=== PATIENT | female | born 1975 | race Caucasian/White ===

== ENCOUNTER 2017-11-09 12:40 | Inpatient (IN) | payer OTHER ==
[2017-11-09 13:43] LABS: BASO % 0.4 % (0.0-1.0); EOS # 0.2 10^3/uL (0.0-0.50); EOS % 1.7 % (0.0-3.0); HEMATOCRIT 39.9 % (36.0-47.0); HEMOGLOBIN 12.5 g/dl (12.0-15.5); IMMATURE GRANULOCYTE % 0.3 % (0-3.0); LYMPH # 2.1 10^3/uL (1.5-4.5); MEAN CORPUSCULAR HGB CONC 31.3 g/dl (32.0-36.5); MEAN CORPUSCULAR VOLUME 83.1 fl (80.0-96.0); MONO # 0.4 10^3/uL (0.0-0.8); MONO % 4.1 % (0.0-5.0); NEUTROPHILS # 6.5 10^3/uL (1.8-7.7); NEUTROPHILS % 70.5 % (36.0-66.0); PLATELET COUNT, AUTOMATED 623 10^3/uL (150-450); RED CELL DISTRIBUTION WIDTH 16.8 % (11.5-14.5); WHITE BLOOD COUNT 9.2 10^3/uL (4.0-10.0)
[2017-11-09] MEDS: ONDANSETRON 4MG/2ML VIAL (J2405) IV ×2 (13:48→22:08)
[2017-11-09] MEDS: MORPHINE 4 MG/ML 1ML VIAL/SYRINGE (J2270) IV ×3 (13:48→23:59)
[2017-11-09] MEDS: NS 1,000 ML IV (13:49)
[2017-11-09 14:33] LABS: ALBUMIN 3.6 GM/DL (3.2-5.2); ALBUMIN/GLOBULIN RATIO 0.88 (1.00-1.93); ALKALINE PHOSPHATASE 128 U/L (45-117); ALT/SGPT 55 U/L (12-78); AMYLASE 84 U/L (25-115); ANION GAP 12 MEQ/L (8-16); AST/SGOT 51 U/L (7-37); BILIRUBIN,DIRECT < 0.1 MG/DL (0.0-0.2); BILIRUBIN,TOTAL 0.2 MG/DL (0.2-1.0); BLOOD UREA NITROGEN 8 MG/DL (7-18); CALCIUM LEVEL 8.7 MG/DL (8.5-10.1); CARBON DIOXIDE LEVEL 22 MEQ/L (21-32); CHLORIDE LEVEL 108 MEQ/L (98-107); CREATININE FOR GFR 0.83 MG/DL (0.55-1.30); GLOMERULAR FILTRATION RATE > 60.0 (>58); GLUCOSE, FASTING 113 MG/DL (70-100); LIPASE 114 U/L (73-393); POTASSIUM SERUM 4.1 MEQ/L (3.5-5.1); SODIUM LEVEL 142 MEQ/L (136-145); TOTAL PROTEIN 7.7 GM/DL (6.4-8.2)
[2017-11-09] MEDS ORDERED: ISOVUE-370 76% 100ML VIAL (Q9967) As Ordered (14:35)
[2017-11-09] MEDS: HYDROMORPHONE HCL 0.5 MG/ 0.5 ML SYRINGE (J1170 PER 1) IV ×2 (15:18→16:47)
[2017-11-09 15:36] LABS: LACTIC ACID SEPSIS PROTOCOL 2.2 MMOL/L (0.4-2.0)
[2017-11-09] MEDS ORDERED: D5W 500 ML IV (18:30)
[2017-11-09] MEDS ORDERED: METOCLOPRAMIDE 10 MG TAB PO (18:30)
[2017-11-09] MEDS: metroNIDAZOLE 500 MG in APPROPRIATE DILUENT 1 EA IV (19:45)
[2017-11-09] MEDS: D5W/0.45% SODIUM CHLORIDE 1,000 ML IV (19:46)
[2017-11-09] MEDS: clonazePAM 1 MG TAB PO (22:07)
[2017-11-09] MEDS: ACETAMINOPHEN TAB 650MG DOSE (2X325MG) PO (22:08)
[2017-11-09] MEDS: cefTRIAXone SOD 1 GM in D5W MINI-BAG PLUS 50 ML IV (22:09)
[2017-11-09] MEDS: OLANZapine 10 MG TAB PO (22:55)
[2017-11-10] MEDS: metroNIDAZOLE 500 MG in APPROPRIATE DILUENT 1 EA IV ×3 (04:14→20:19)
[2017-11-10] MEDS: MORPHINE 4 MG/ML 1ML VIAL/SYRINGE (J2270) IV ×5 (05:56→20:17)
[2017-11-10 07:04] LABS: HEMATOCRIT 30.7 % (36.0-47.0); MEAN CORPUSCULAR HEMOGLOBIN 26.2 pg (27.0-33.0); MEAN CORPUSCULAR HGB CONC 31.9 g/dl (32.0-36.5); MEAN CORPUSCULAR VOLUME 82.1 fl (80.0-96.0); RED BLOOD COUNT 3.74 10^6/uL (4.00-5.40); RED CELL DISTRIBUTION WIDTH 17.2 % (11.5-14.5); WHITE BLOOD COUNT 15.2 10^3/uL (4.0-10.0)
[2017-11-10 07:13] LABS: HEMOGLOBIN 9.8 g/dl (12.0-15.5); PLATELET COUNT, AUTOMATED 445 10^3/uL (150-450)
[2017-11-10 07:17] LABS: ANION GAP 9 MEQ/L (8-16); BLOOD UREA NITROGEN 11 MG/DL (7-18); CALCIUM LEVEL 8.1 MG/DL (8.5-10.1); CARBON DIOXIDE LEVEL 24 MEQ/L (21-32); CHLORIDE LEVEL 103 MEQ/L (98-107); CREATININE FOR GFR 0.93 MG/DL (0.55-1.30); GLOMERULAR FILTRATION RATE > 60.0 (>58); GLUCOSE, FASTING 117 MG/DL (70-100); POTASSIUM SERUM 3.6 MEQ/L (3.5-5.1); SODIUM LEVEL 136 MEQ/L (136-145)
[2017-11-10 08:53] LABS: LACTIC ACID SEPSIS PROTOCOL 1.5 MMOL/L (0.4-2.0)
[2017-11-10] MEDS: FLUoxetine 20 MG CAP PO (10:32)
[2017-11-10] MEDS: ENOXAPARIN 40 MG/0.4 ML SYRINGE (J1650) SC (10:32)
[2017-11-10] MEDS: LISINOPRIL 20 MG TAB PO (10:35)
[2017-11-10] MEDS: clonazePAM 1 MG TAB PO ×2 (10:35→21:00)
[2017-11-10] MEDS: OMEPRAZOLE 20 MG CAP PO (10:35)
[2017-11-10] MEDS: OLANZapine 10 MG TAB PO ×2 (10:43→21:00)
[2017-11-10] MEDS: D5W/0.45% SODIUM CHLORIDE 1,000 ML IV (12:10)
[2017-11-10] MEDS ORDERED: MORPHINE 4 MG/ML 1ML VIAL/SYRINGE (J2270) As Ordered (13:39)
[2017-11-10 18:55] LABS: HEMATOCRIT 30.8 % (36.0-47.0); HEMOGLOBIN 9.7 g/dl (12.0-15.5); MEAN CORPUSCULAR HGB CONC 31.5 g/dl (32.0-36.5); MEAN CORPUSCULAR VOLUME 82.6 fl (80.0-96.0); PLATELET COUNT, AUTOMATED 450 10^3/uL (150-450); RED BLOOD COUNT 3.73 10^6/uL (4.00-5.40); RED CELL DISTRIBUTION WIDTH 17.4 % (11.5-14.5); WHITE BLOOD COUNT 14.6 10^3/uL (4.0-10.0)
[2017-11-10 19:09] LABS: PROTHROMBIN TIME 14.4 SECONDS (12.1-14.4)
[2017-11-10 19:10] LABS: PARTIAL THROMBOPLASTIN TIME 34.5 SECONDS (25.4-37.6)
[2017-11-10] MEDS ORDERED: PHENYLEPHRINE INJ 10MG/ML VIAL (J2370) As Ordered (21:34)
[2017-11-10] MEDS ORDERED: ROCURONIUM BROMIDE 50 MG/5 ML VIAL As Ordered ×2 (21:34→21:48)
[2017-11-10] MEDS ORDERED: MIDAZOLAM INJ 2 MG/2 ML VIAL (J2250) As Ordered (21:34)
[2017-11-10] MEDS ORDERED: LIDOCAINE 2% INJ 100 MG/5 ML SDV (FOR ANES.) As Ordered (21:34)
[2017-11-10] MEDS ORDERED: fentaNYL 250 MCG/5 ML INJECTION (J3010) As Ordered (21:34)
[2017-11-10] MEDS ORDERED: PROPOFOL 200 MG/20 ML VIAL As Ordered (21:34)
[2017-11-10] MEDS ORDERED: PHENYLephrine HCL 500 MCG/5 ML (100MCG/ML) SYRINGE (J2370) As Ordered ×2 (21:37)
[2017-11-10] MEDS ORDERED: dexameTHASONE 4 MG/ML 1ML VIAL (J1100) As Ordered (21:49)
[2017-11-10] MEDS ORDERED: LABETALOL HCL 100 MG/20 ML VIAL As Ordered (21:57)
[2017-11-10] MEDS ORDERED: HYDROmorphone HCL 2 MG/ML 1ML VIAL (J1170) As Ordered (22:00)
[2017-11-10] MEDS ORDERED: DESFLURANE 240 ML INHALANT As Ordered (22:06)
[2017-11-10] MEDS ORDERED: ONDANSETRON 4MG/2ML VIAL (J2405) As Ordered (22:46)
[2017-11-10] MEDS ORDERED: GLYCOPYRROLATE INJ 0.2 MG/ML 2 ML VIAL As Ordered (22:48)
[2017-11-10] MEDS ORDERED: NEOSTIGMINE 10 MG/10 ML VIAL (J2710) As Ordered (22:48)
[2017-11-10] MEDS: BUPIVACAINE LIPOSOME/PF 1.3% 20 ML VIAL (13.3MG/ML)(EXPAREL) As Ordered (22:57)
[2017-11-10] MEDS: BUPIVACAINE HCL 0.25% 10 ML VIAL As Ordered (22:57)
[2017-11-10] MEDS: NS 1,000 ML IV ×2 (23:11)
[2017-11-10] MEDS ORDERED: NALBUPHINE HCL 10 MG/ML AMP (J2300) IV (23:15)
[2017-11-10] MEDS ORDERED: IPRATROPIUM 0.5MG/ALBUTEROL 2.5MG INH SOL UD 3ML (DUONEB)(J7620) NEB (23:15)
[2017-11-10] MEDS ORDERED: NALOXONE INJ 0.4 MG/1 ML VIAL (J2310) IV (23:15)
[2017-11-10] MEDS ORDERED: EPIDURAL/PCA KEYS XX (23:15)
[2017-11-10] MEDS ORDERED: diphenhydrAMINE INJ 50MG/ML VIAL (J1200) IV (23:15)
[2017-11-10] MEDS ORDERED: PROMETHAZINE INJ 25 MG/ML VIAL (J2550) IV (23:15)
[2017-11-10] MEDS ORDERED: MORPHINE 1MG/ML IN 0.9% NACL 100ML IV BAG As Ordered (23:27)
[2017-11-10] MEDS: LR 1,000 ML IV (23:30)
[2017-11-10] MEDS ORDERED: PERCOCET 5MG/325MG TAB PO (23:30)
[2017-11-10] MEDS ORDERED: fentaNYL 100 MCG/2 ML INJECTION (J3010) IV (23:30)
[2017-11-10] MEDS ORDERED: HYDROMORPHONE HCL 0.5 MG/ 0.5 ML SYRINGE (J1170 PER 1) IV (23:30)
[2017-11-10] MEDS ORDERED: ONDANSETRON 4MG/2ML VIAL (J2405) IV (23:30)
[2017-11-11] MEDS: IPRATROPIUM 0.5MG/ALBUTEROL 2.5MG INH SOL UD 3ML (DUONEB)(J7620) NEB ×4 (00:49→20:06)
[2017-11-11] MEDS: NS 500 ML IV ×2 (03:56→05:45)
[2017-11-11] MEDS: metroNIDAZOLE 500 MG in APPROPRIATE DILUENT 1 EA IV ×3 (04:01→20:05)
[2017-11-11] MEDS: cefTRIAXone SOD 1 GM in D5W MINI-BAG PLUS 50 ML IV ×2 (04:55→21:26)
[2017-11-11 05:19] LABS: HEMATOCRIT 32.3 % (36.0-47.0); HEMOGLOBIN 9.8 g/dl (12.0-15.5); MEAN CORPUSCULAR HGB CONC 30.3 g/dl (32.0-36.5); MEAN CORPUSCULAR VOLUME 85.7 fl (80.0-96.0); PLATELET COUNT, AUTOMATED 445 10^3/uL (150-450); RED BLOOD COUNT 3.77 10^6/uL (4.00-5.40); RED CELL DISTRIBUTION WIDTH 17.5 % (11.5-14.5); WHITE BLOOD COUNT 15.6 10^3/uL (4.0-10.0)
[2017-11-11 05:35] LABS: ANION GAP 10 MEQ/L (8-16); BLOOD UREA NITROGEN 14 MG/DL (7-18); CALCIUM LEVEL 7.4 MG/DL (8.5-10.1); CARBON DIOXIDE LEVEL 21 MEQ/L (21-32); CHLORIDE LEVEL 107 MEQ/L (98-107); CREATININE FOR GFR 1.63 MG/DL (0.55-1.30); GLOMERULAR FILTRATION RATE 37.2 (>58); GLUCOSE, FASTING 160 MG/DL (70-100); POTASSIUM SERUM 4.4 MEQ/L (3.5-5.1); SODIUM LEVEL 138 MEQ/L (136-145)
[2017-11-11] MEDS: NS 1,000 ML IV ×3 (07:11→18:06)
[2017-11-11 07:16] LABS: AMORPHOUS SEDIMENT RFX MODERATE (NEGATIVE); KETONE, URINE AUTO RFX NEGATIVE (NEGATIVE); MUCUS, URINE RFX SMALL (NEGATIVE); NITRITE, URINE AUTO RFX NEGATIVE (NEGATIVE); RBC, URINE AUTO RFX 98 /HPF (0-3); SPECIFIC GRAVITY UR AUTO RFX 1.019 (1.002-1.035); SQUAM EPITHELIAL CELL UR AURFX 0 /HPF (0-6); WBC, URINE AUTO RFX 9 /HPF (0-3)
[2017-11-11 07:18] LABS: LEUKOCYTE ESTERASE UR AUTO RFX 1+ (NEGATIVE)
[2017-11-11] MEDS: clonazePAM 1 MG TAB PO ×2 (10:16→21:25)
[2017-11-11] MEDS: OLANZapine 10 MG TAB PO ×2 (10:16→21:25)
[2017-11-11] MEDS: ALVIMOPAN 12 MG CAPSULE (ENTEREG) PO ×2 (10:16→21:25)
[2017-11-11] MEDS: PANTOPRAZOLE 40MG INJ (PROTONIX) (C9113) IV (10:16)
[2017-11-11] MEDS: FLUoxetine 20 MG CAP PO (10:17)
[2017-11-11 15:21] LABS: HEMATOCRIT 28.1 % (36.0-47.0); HEMOGLOBIN 8.7 g/dl (12.0-15.5)
[2017-11-11] MEDS: MORPHINE 1MG/ML IN 0.9% NACL 100ML IV BAG IV (16:55)
[2017-11-12] MEDS: NS 1,000 ML IV ×3 (00:54→10:47)
[2017-11-12] MEDS: IPRATROPIUM 0.5MG/ALBUTEROL 2.5MG INH SOL UD 3ML (DUONEB)(J7620) NEB ×4 (02:00→19:47)
[2017-11-12] MEDS: metroNIDAZOLE 500 MG in APPROPRIATE DILUENT 1 EA IV ×3 (04:33→21:16)
[2017-11-12 05:47] LABS: HEMOGLOBIN 7.9 g/dl (12.0-15.5); MEAN CORPUSCULAR HEMOGLOBIN 26.4 pg (27.0-33.0); MEAN CORPUSCULAR HGB CONC 30.4 g/dl (32.0-36.5); PLATELET COUNT, AUTOMATED 359 10^3/uL (150-450); RED BLOOD COUNT 2.99 10^6/uL (4.00-5.40); RED CELL DISTRIBUTION WIDTH 17.6 % (11.5-14.5); WHITE BLOOD COUNT 11.9 10^3/uL (4.0-10.0)
[2017-11-12 05:58] LABS: ANION GAP 7 MEQ/L (8-16); BLOOD UREA NITROGEN 21 MG/DL (7-18); CALCIUM LEVEL 7.6 MG/DL (8.5-10.1); CARBON DIOXIDE LEVEL 22 MEQ/L (21-32); CHLORIDE LEVEL 111 MEQ/L (98-107); CREATININE FOR GFR 1.69 MG/DL (0.55-1.30); GLOMERULAR FILTRATION RATE 35.7 (>58); GLUCOSE, FASTING 106 MG/DL (70-100); POTASSIUM SERUM 4.3 MEQ/L (3.5-5.1); SODIUM LEVEL 140 MEQ/L (136-145)
[2017-11-12] MEDS: PANTOPRAZOLE 40MG INJ (PROTONIX) (C9113) IV (09:36)
[2017-11-12] MEDS: OLANZapine 10 MG TAB PO ×2 (09:37→21:17)
[2017-11-12] MEDS: clonazePAM 1 MG TAB PO ×2 (09:37→21:17)
[2017-11-12] MEDS: ALVIMOPAN 12 MG CAPSULE (ENTEREG) PO ×2 (09:37→21:17)
[2017-11-12] MEDS: FLUoxetine 20 MG CAP PO (09:37)
[2017-11-12] MEDS: ONDANSETRON 4MG/2ML VIAL (J2405) IV (09:42)
[2017-11-12] MEDS: MORPHINE 1MG/ML IN 0.9% NACL 100ML IV BAG IV (10:46)
[2017-11-12 15:12] LABS: HEMOGLOBIN 8.1 g/dl (12.0-15.5)
[2017-11-12] MEDS: cefTRIAXone SOD 1 GM in D5W MINI-BAG PLUS 50 ML IV (22:54)
[2017-11-13] MEDS: IPRATROPIUM 0.5MG/ALBUTEROL 2.5MG INH SOL UD 3ML (DUONEB)(J7620) NEB ×4 (01:42→22:48)
[2017-11-13] MEDS: NS 1,000 ML IV (02:00)
[2017-11-13] MEDS: metroNIDAZOLE 500 MG in APPROPRIATE DILUENT 1 EA IV ×3 (04:19→21:36)
[2017-11-13 05:15] LABS: HEMATOCRIT 24.2 % (36.0-47.0); HEMOGLOBIN 7.3 g/dl (12.0-15.5); MEAN CORPUSCULAR HEMOGLOBIN 25.8 pg (27.0-33.0); MEAN CORPUSCULAR HGB CONC 30.2 g/dl (32.0-36.5); MEAN CORPUSCULAR VOLUME 85.5 fl (80.0-96.0); PLATELET COUNT, AUTOMATED 411 10^3/uL (150-450); RED BLOOD COUNT 2.83 10^6/uL (4.00-5.40); RED CELL DISTRIBUTION WIDTH 17.6 % (11.5-14.5); WHITE BLOOD COUNT 8.8 10^3/uL (4.0-10.0)
[2017-11-13 05:36] LABS: ANION GAP 9 MEQ/L (8-16); BLOOD UREA NITROGEN 16 MG/DL (7-18); CALCIUM LEVEL 8.1 MG/DL (8.5-10.1); CARBON DIOXIDE LEVEL 22 MEQ/L (21-32); CHLORIDE LEVEL 111 MEQ/L (98-107); CREATININE FOR GFR 1.25 MG/DL (0.55-1.30); GLOMERULAR FILTRATION RATE 50.5 (>58); GLUCOSE, FASTING 94 MG/DL (70-100); POTASSIUM SERUM 3.6 MEQ/L (3.5-5.1); SODIUM LEVEL 142 MEQ/L (136-145)
[2017-11-13] MEDS: PANTOPRAZOLE 40MG INJ (PROTONIX) (C9113) IV (09:51)
[2017-11-13] MEDS: NS 0.45% 1,000 ML IV (09:51)
[2017-11-13] MEDS: FLUoxetine 20 MG CAP PO (09:51)
[2017-11-13] MEDS: clonazePAM 1 MG TAB PO ×2 (09:52→21:29)
[2017-11-13] MEDS: OLANZapine 10 MG TAB PO ×2 (09:52→21:29)
[2017-11-13] MEDS: ALVIMOPAN 12 MG CAPSULE (ENTEREG) PO ×2 (09:52→21:29)
[2017-11-13] MEDS: ONDANSETRON 4MG/2ML VIAL (J2405) IV (10:18)
[2017-11-13] MEDS: MORPHINE 1MG/ML IN 0.9% NACL 100ML IV BAG IV (10:46)
[2017-11-13 14:28] LABS: HEMATOCRIT 27.3 % (36.0-47.0); HEMOGLOBIN 8.5 g/dl (12.0-15.5)
[2017-11-13] MEDS: cefTRIAXone SOD 1 GM in D5W MINI-BAG PLUS 50 ML IV (21:00)
[2017-11-14] MEDS: IPRATROPIUM 0.5MG/ALBUTEROL 2.5MG INH SOL UD 3ML (DUONEB)(J7620) NEB ×4 (01:22→21:19)
[2017-11-14] MEDS: metroNIDAZOLE 500 MG in APPROPRIATE DILUENT 1 EA IV ×3 (04:00→21:02)
[2017-11-14 05:59] LABS: HEMATOCRIT 26.3 % (36.0-47.0); HEMOGLOBIN 8.1 g/dl (12.0-15.5); MEAN CORPUSCULAR HGB CONC 30.8 g/dl (32.0-36.5); MEAN CORPUSCULAR VOLUME 84.3 fl (80.0-96.0); PLATELET COUNT, AUTOMATED 469 10^3/uL (150-450); RED BLOOD COUNT 3.12 10^6/uL (4.00-5.40); RED CELL DISTRIBUTION WIDTH 17.2 % (11.5-14.5); WHITE BLOOD COUNT 8.4 10^3/uL (4.0-10.0)
[2017-11-14 06:17] LABS: ANION GAP 10 MEQ/L (8-16); BLOOD UREA NITROGEN 9 MG/DL (7-18); CALCIUM LEVEL 8.1 MG/DL (8.5-10.1); CARBON DIOXIDE LEVEL 26 MEQ/L (21-32); CHLORIDE LEVEL 105 MEQ/L (98-107); CREATININE FOR GFR 1.05 MG/DL (0.55-1.30); GLOMERULAR FILTRATION RATE > 60.0 (>58); GLUCOSE, FASTING 83 MG/DL (70-100); POTASSIUM SERUM 3.4 MEQ/L (3.5-5.1); SODIUM LEVEL 141 MEQ/L (136-145)
[2017-11-14] MEDS: PANTOPRAZOLE 40MG INJ (PROTONIX) (C9113) IV (10:27)
[2017-11-14] MEDS: clonazePAM 1 MG TAB PO ×2 (10:27→22:44)
[2017-11-14] MEDS: ALVIMOPAN 12 MG CAPSULE (ENTEREG) PO ×2 (10:27→22:44)
[2017-11-14] MEDS: FLUoxetine 20 MG CAP PO (10:28)
[2017-11-14] MEDS: OLANZapine 10 MG TAB PO ×2 (10:28→22:44)
[2017-11-14] MEDS ORDERED: LEVEMIR (INSULIN DETEMIR) 1 UNITS/0.01ML As Ordered (11:20)
[2017-11-14] MEDS: MORPHINE 1MG/ML IN 0.9% NACL 100ML IV BAG IV (11:55)
[2017-11-14] MEDS: NS 0.45% 1,000 ML IV (11:55)
[2017-11-14] MEDS: POTASSIUM CHLORIDE 10 MEQ SR TABLET PO (18:17)
[2017-11-14] MEDS: cefTRIAXone SOD 1 GM in D5W MINI-BAG PLUS 50 ML IV (22:45)
[2017-11-15] MEDS: IPRATROPIUM 0.5MG/ALBUTEROL 2.5MG INH SOL UD 3ML (DUONEB)(J7620) NEB ×4 (02:00→19:45)
[2017-11-15] MEDS: metroNIDAZOLE 500 MG in APPROPRIATE DILUENT 1 EA IV ×3 (03:05→20:19)
[2017-11-15 06:02] LABS: HEMATOCRIT 24.1 % (36.0-47.0); HEMOGLOBIN 7.7 g/dl (12.0-15.5); MEAN CORPUSCULAR HEMOGLOBIN 25.8 pg (27.0-33.0); MEAN CORPUSCULAR VOLUME 80.6 fl (80.0-96.0); PLATELET COUNT, AUTOMATED 459 10^3/uL (150-450); RED BLOOD COUNT 2.99 10^6/uL (4.00-5.40); RED CELL DISTRIBUTION WIDTH 17.2 % (11.5-14.5); WHITE BLOOD COUNT 7.1 10^3/uL (4.0-10.0)
[2017-11-15 06:25] LABS: ANION GAP 9 MEQ/L (8-16); BLOOD UREA NITROGEN 6 MG/DL (7-18); CALCIUM LEVEL 7.9 MG/DL (8.5-10.1); CARBON DIOXIDE LEVEL 28 MEQ/L (21-32); CHLORIDE LEVEL 106 MEQ/L (98-107); CREATININE FOR GFR 0.96 MG/DL (0.55-1.30); GLOMERULAR FILTRATION RATE > 60.0 (>58); GLUCOSE, FASTING 92 MG/DL (70-100); POTASSIUM SERUM 2.9 MEQ/L (3.5-5.1); SODIUM LEVEL 143 MEQ/L (136-145)
[2017-11-15] MEDS: POTASSIUM CHLORIDE 10 MEQ SR TABLET PO (07:01)
[2017-11-15] MEDS ORDERED: PERCOCET 5MG/325MG TAB PO (08:45)
[2017-11-15] MEDS: FLUoxetine 20 MG CAP PO (08:46)
[2017-11-15] MEDS: PANTOPRAZOLE 40MG INJ (PROTONIX) (C9113) IV (08:46)
[2017-11-15] MEDS: ALVIMOPAN 12 MG CAPSULE (ENTEREG) PO ×2 (08:46→20:18)
[2017-11-15] MEDS: OLANZapine 10 MG TAB PO ×2 (08:46→20:18)
[2017-11-15] MEDS: clonazePAM 1 MG TAB PO ×2 (08:46→20:18)
[2017-11-15] MEDS: KCL 10MEQ/100ML SWI (KRUN) 10 MEQ in APPROPRIATE DILUENT 1 EA IV ×3 (08:47→13:26)
[2017-11-15 13:33] LABS: ANION GAP 9 MEQ/L (8-16); BLOOD UREA NITROGEN 6 MG/DL (7-18); CALCIUM LEVEL 8.3 MG/DL (8.5-10.1); CARBON DIOXIDE LEVEL 26 MEQ/L (21-32); CHLORIDE LEVEL 108 MEQ/L (98-107); CREATININE FOR GFR 1.03 MG/DL (0.55-1.30); GLOMERULAR FILTRATION RATE > 60.0 (>58); GLUCOSE, FASTING 120 MG/DL (70-100); MAGNESIUM LEVEL 1.9 MG/DL (1.8-2.4); SODIUM LEVEL 143 MEQ/L (136-145)
[2017-11-15 14:45] LABS: IMMEDIATE SPIN CROSSMATCH 1 1
[2017-11-15] MEDS: PERCOCET 5MG/325MG TAB PO ×2 (15:27→20:19)
[2017-11-15] MEDS: cefTRIAXone SOD 1 GM in D5W MINI-BAG PLUS 50 ML IV (21:48)
[2017-11-15] MEDS: ONDANSETRON 4MG/2ML VIAL (J2405) IV (22:35)
[2017-11-15] MEDS: MORPHINE 4 MG/ML 1ML VIAL/SYRINGE (J2270) IV (23:26)
[2017-11-16] MEDS: IPRATROPIUM 0.5MG/ALBUTEROL 2.5MG INH SOL UD 3ML (DUONEB)(J7620) NEB ×2 (02:04→07:18)
[2017-11-16] MEDS: PERCOCET 5MG/325MG TAB PO ×4 (02:14→17:48)
[2017-11-16] MEDS: metroNIDAZOLE 500 MG in APPROPRIATE DILUENT 1 EA IV ×2 (03:58→12:52)
[2017-11-16] MEDS: MORPHINE 4 MG/ML 1ML VIAL/SYRINGE (J2270) IV ×4 (04:27→19:20)
[2017-11-16 07:12] LABS: HEMOGLOBIN 8.2 g/dl (12.0-15.5); MEAN CORPUSCULAR HEMOGLOBIN 26.5 pg (27.0-33.0); MEAN CORPUSCULAR HGB CONC 31.5 g/dl (32.0-36.5); MEAN CORPUSCULAR VOLUME 84.1 fl (80.0-96.0); PLATELET COUNT, AUTOMATED 464 10^3/uL (150-450); RED BLOOD COUNT 3.09 10^6/uL (4.00-5.40); RED CELL DISTRIBUTION WIDTH 17.2 % (11.5-14.5); WHITE BLOOD COUNT 7.6 10^3/uL (4.0-10.0)
[2017-11-16 07:56] LABS: ANION GAP 10 MEQ/L (8-16); BLOOD UREA NITROGEN 7 MG/DL (7-18); CALCIUM LEVEL 7.7 MG/DL (8.5-10.1); CARBON DIOXIDE LEVEL 27 MEQ/L (21-32); CHLORIDE LEVEL 109 MEQ/L (98-107); CREATININE FOR GFR 1.02 MG/DL (0.55-1.30); GLOMERULAR FILTRATION RATE > 60.0 (>58); GLUCOSE, FASTING 95 MG/DL (70-100); POTASSIUM SERUM 2.9 MEQ/L (3.5-5.1); SODIUM LEVEL 146 MEQ/L (136-145)
[2017-11-16] MEDS: POTASSIUM CHLORIDE 10 MEQ SR TABLET PO (08:40)
[2017-11-16] MEDS: FLUoxetine 20 MG CAP PO (08:40)
[2017-11-16] MEDS: clonazePAM 1 MG TAB PO ×2 (08:40→22:10)
[2017-11-16] MEDS: KCL 10MEQ/100ML SWI (KRUN) 10 MEQ in APPROPRIATE DILUENT 1 EA IV ×2 (08:41→10:00)
[2017-11-16] MEDS: KETOROLAC 30 MG/ML VIAL (J1885) IV ×2 (08:42→22:12)
[2017-11-16] MEDS: PANTOPRAZOLE 40MG INJ (PROTONIX) (C9113) IV (08:42)
[2017-11-16] MEDS: OLANZapine 10 MG TAB PO ×2 (08:57→22:10)
[2017-11-16] MEDS ORDERED: MORPHINE 4 MG/ML 1ML VIAL/SYRINGE (J2270) IV (09:15)
[2017-11-16 15:47] LABS: ANION GAP 7 MEQ/L (8-16); BLOOD UREA NITROGEN 8 MG/DL (7-18); CALCIUM LEVEL 7.9 MG/DL (8.5-10.1); CARBON DIOXIDE LEVEL 27 MEQ/L (21-32); CHLORIDE LEVEL 110 MEQ/L (98-107); CREATININE FOR GFR 1.23 MG/DL (0.55-1.30); GLOMERULAR FILTRATION RATE 51.5 (>58); GLUCOSE, FASTING 138 MG/DL (70-100); MAGNESIUM LEVEL 1.9 MG/DL (1.8-2.4); POTASSIUM SERUM 3.5 MEQ/L (3.5-5.1); SODIUM LEVEL 144 MEQ/L (136-145)
[2017-11-16] MEDS: cefTRIAXone SOD 1 GM in D5W MINI-BAG PLUS 50 ML IV (22:10)
[2017-11-17] MEDS ORDERED: MORPHINE 4 MG/ML 1ML VIAL/SYRINGE (J2270) IV (02:30)
[2017-11-17] MEDS ORDERED: PERCOCET 5MG/325MG TAB PO (02:30)
[2017-11-17] MEDS: KETOROLAC 30 MG/ML VIAL (J1885) IV (06:08)
[2017-11-17] MEDS: FLUoxetine 20 MG CAP PO (08:02)
[2017-11-17] MEDS: clonazePAM 1 MG TAB PO ×2 (08:03→20:58)
[2017-11-17] MEDS: PANTOPRAZOLE 40MG INJ (PROTONIX) (C9113) IV (08:03)
[2017-11-17] MEDS: MORPHINE 4 MG/ML 1ML VIAL/SYRINGE (J2270) IV ×5 (08:03→20:59)
[2017-11-17] MEDS: OLANZapine 10 MG TAB PO ×2 (08:03→20:58)
[2017-11-17] MEDS: PERCOCET 5MG/325MG TAB PO ×3 (09:30→18:43)
[2017-11-17] MEDS: cefTRIAXone SOD 1 GM in D5W MINI-BAG PLUS 50 ML IV (20:58)
[2017-11-18] MEDS: MORPHINE 4 MG/ML 1ML VIAL/SYRINGE (J2270) IV ×5 (00:33→18:30)
[2017-11-18] MEDS: PANTOPRAZOLE 40MG INJ (PROTONIX) (C9113) IV (08:46)
[2017-11-18] MEDS: clonazePAM 1 MG TAB PO ×2 (08:47→20:32)
[2017-11-18] MEDS: FLUoxetine 20 MG CAP PO (08:47)
[2017-11-18] MEDS: OLANZapine 10 MG TAB PO ×2 (08:47→20:32)
[2017-11-18] MEDS: PERCOCET 5MG/325MG TAB PO ×2 (08:48→20:34)
[2017-11-18] MEDS ORDERED: IBUPROFEN 800 MG TAB PO (12:00)
[2017-11-18 12:39] LABS: HEMATOCRIT 28.1 % (36.0-47.0); MEAN CORPUSCULAR HEMOGLOBIN 27.1 pg (27.0-33.0); MEAN CORPUSCULAR VOLUME 84.6 fl (80.0-96.0); PLATELET COUNT, AUTOMATED 584 10^3/uL (150-450); RED BLOOD COUNT 3.32 10^6/uL (4.00-5.40); RED CELL DISTRIBUTION WIDTH 17.5 % (11.5-14.5); WHITE BLOOD COUNT 9.8 10^3/uL (4.0-10.0)
[2017-11-18 12:57] LABS: ANION GAP 11 MEQ/L (8-16); BLOOD UREA NITROGEN 8 MG/DL (7-18); CALCIUM LEVEL 7.9 MG/DL (8.5-10.1); CARBON DIOXIDE LEVEL 25 MEQ/L (21-32); CHLORIDE LEVEL 109 MEQ/L (98-107); CREATININE FOR GFR 1.27 MG/DL (0.55-1.30); GLOMERULAR FILTRATION RATE 49.6 (>58); GLUCOSE, FASTING 95 MG/DL (70-100); MAGNESIUM LEVEL 1.6 MG/DL (1.8-2.4); POTASSIUM SERUM 3.8 MEQ/L (3.5-5.1); SODIUM LEVEL 145 MEQ/L (136-145)
[2017-11-18] MEDS: MAGNESIUM OXIDE 400 MG TAB (MAG-OX) PO ×2 (14:49→20:32)
[2017-11-18] MEDS: ONDANSETRON 4MG/2ML VIAL (J2405) IV (20:34)
[2017-11-18] MEDS: cefTRIAXone SOD 1 GM in D5W MINI-BAG PLUS 50 ML IV (22:39)
[2017-11-19] MEDS: MORPHINE 4 MG/ML 1ML VIAL/SYRINGE (J2270) IV ×3 (01:08→19:15)
[2017-11-19] MEDS: ONDANSETRON 4MG/2ML VIAL (J2405) IV ×2 (08:21→19:15)
[2017-11-19] MEDS: FLUoxetine 20 MG CAP PO (08:21)
[2017-11-19] MEDS: PANTOPRAZOLE 40MG INJ (PROTONIX) (C9113) IV (08:21)
[2017-11-19] MEDS: MAGNESIUM OXIDE 400 MG TAB (MAG-OX) PO ×2 (08:22→20:36)
[2017-11-19] MEDS: OLANZapine 10 MG TAB PO ×2 (08:22→20:36)
[2017-11-19] MEDS: PERCOCET 5MG/325MG TAB PO ×4 (08:23→22:52)
[2017-11-19] MEDS: clonazePAM 1 MG TAB PO ×2 (08:23→20:36)
[2017-11-19 09:00] LABS: HEMOGLOBIN 9.6 g/dl (12.0-15.5); MEAN CORPUSCULAR HEMOGLOBIN 26.6 pg (27.0-33.0); MEAN CORPUSCULAR VOLUME 83.1 fl (80.0-96.0); PLATELET COUNT, AUTOMATED 552 10^3/uL (150-450); RED BLOOD COUNT 3.61 10^6/uL (4.00-5.40); RED CELL DISTRIBUTION WIDTH 17.6 % (11.5-14.5); WHITE BLOOD COUNT 11.1 10^3/uL (4.0-10.0)
[2017-11-19 09:22] LABS: ANION GAP 10 MEQ/L (8-16); BLOOD UREA NITROGEN 7 MG/DL (7-18); CALCIUM LEVEL 8.1 MG/DL (8.5-10.1); CARBON DIOXIDE LEVEL 27 MEQ/L (21-32); CHLORIDE LEVEL 107 MEQ/L (98-107); CREATININE FOR GFR 1.13 MG/DL (0.55-1.30); GLOMERULAR FILTRATION RATE 56.8 (>58); GLUCOSE, FASTING 117 MG/DL (70-100); MAGNESIUM LEVEL 1.7 MG/DL (1.8-2.4); POTASSIUM SERUM 3.2 MEQ/L (3.5-5.1); SODIUM LEVEL 144 MEQ/L (136-145)
[2017-11-19] MEDS: IBUPROFEN 800 MG TAB PO ×2 (12:55→22:53)
[2017-11-19] MEDS ORDERED: KCL 10MEQ/100ML SWI (KRUN) 10 MEQ in APPROPRIATE DILUENT 1 EA IV (16:00)
[2017-11-19] MEDS: POTASSIUM CHLORIDE 10 MEQ SR TABLET PO (16:28)
[2017-11-19] MEDS: cefTRIAXone SOD 1 GM in D5W MINI-BAG PLUS 50 ML IV (20:36)
[2017-11-20 05:54] LABS: HEMATOCRIT 31.2 % (36.0-47.0); HEMOGLOBIN 9.7 g/dl (12.0-15.5); MEAN CORPUSCULAR HEMOGLOBIN 26.7 pg (27.0-33.0); MEAN CORPUSCULAR HGB CONC 31.1 g/dl (32.0-36.5); PLATELET COUNT, AUTOMATED 370 10^3/uL (150-450); RED BLOOD COUNT 3.63 10^6/uL (4.00-5.40); RED CELL DISTRIBUTION WIDTH 17.4 % (11.5-14.5); WHITE BLOOD COUNT 9.1 10^3/uL (4.0-10.0)
[2017-11-20 06:16] LABS: ANION GAP 10 MEQ/L (8-16); BLOOD UREA NITROGEN 13 MG/DL (7-18); CALCIUM LEVEL 7.8 MG/DL (8.5-10.1); CARBON DIOXIDE LEVEL 23 MEQ/L (21-32); CHLORIDE LEVEL 110 MEQ/L (98-107); CREATININE FOR GFR 1.25 MG/DL (0.55-1.30); GLOMERULAR FILTRATION RATE 50.5 (>58); GLUCOSE, FASTING 100 MG/DL (70-100); MAGNESIUM LEVEL 1.7 MG/DL (1.8-2.4); POTASSIUM SERUM 3.6 MEQ/L (3.5-5.1); SODIUM LEVEL 143 MEQ/L (136-145)
[2017-11-20] MEDS: POTASSIUM CHLORIDE 10 MEQ SR TABLET PO (08:10)
[2017-11-20] MEDS: PANTOPRAZOLE 40MG INJ (PROTONIX) (C9113) IV (08:10)
[2017-11-20] MEDS: FLUoxetine 20 MG CAP PO (08:11)
[2017-11-20] MEDS: clonazePAM 1 MG TAB PO (08:11)
[2017-11-20] MEDS: OLANZapine 10 MG TAB PO (08:11)
[2017-11-20] MEDS: MAGNESIUM OXIDE 400 MG TAB (MAG-OX) PO (08:11)
[2017-11-20] MEDS: PERCOCET 5MG/325MG TAB PO ×2 (08:32→12:44)
== END 2017-11-20 13:01 | disposition home health service (06) | DRG 221 ==
LOC: M MSPAV 11-14 12:33 → M PCU 11-10 23:53 → M ED 12:40 → M ED INP 18:30 → M MSPAV 21:15
PROC: 0D1M0ZN Bypass Descending Colon to Sigmoid Colon, Open Approach (ICD-10-PCS; principal; 2017-11-10 20:57)
PROC: 0DBN0ZX Excision of Sigmoid Colon, Open Approach, Diagnostic (ICD-10-PCS; 2017-11-10 20:57)
PROC: 30233N1 Transfusion of Nonautologous Red Blood Cells into Peripheral Vein, Percutaneous Approach (ICD-10-PCS; 2017-11-10 20:57)
DX: K57.80 Diverticulitis of intestine, part unspecified, with perforation and abscess without bleeding (principal); N17.9 Acute kidney failure, unspecified; E83.42 Hypomagnesemia; N39.0 Urinary tract infection, site not specified; E66.01 Morbid (severe) obesity due to excess calories; E87.6 Hypokalemia; K21.9 Gastro-esophageal reflux disease without esophagitis; I10 Essential (primary) hypertension; F41.9 Anxiety disorder, unspecified; F32.9 Major depressive disorder, single episode, unspecified; F39 Unspecified mood [affective] disorder; K44.9 Diaphragmatic hernia without obstruction or gangrene; Z79.899 Other long term (current) drug therapy; Z88.8 Allergy status to other drugs, medicaments and biological substances; F17.200 Nicotine dependence, unspecified, uncomplicated; D64.9 Anemia, unspecified; B96.29 Other Escherichia coli [E. coli] as the cause of diseases classified elsewhere

== ENCOUNTER 2017-11-28 16:52 | Emergency (ER) | payer OTHER ==
[2017-11-28] MEDS: NS 1,000 ML IV (17:15)
[2017-11-28] MEDS: ONDANSETRON 4MG/2ML VIAL (J2405) IV (17:37)
[2017-11-28] MEDS: MORPHINE 2 MG/ML 1ML SYRINGE (J2270) IV (17:38)
[2017-11-28 18:05] LABS: BASO # 0.1 10^3/uL (0.0-0.2); BASO % 1.2 % (0.0-1.0); EOS # 0.4 10^3/uL (0.0-0.50); EOS % 4.5 % (0.0-3.0); HEMATOCRIT 33.1 % (36.0-47.0); HEMOGLOBIN 10.4 g/dl (12.0-15.5); IMMATURE GRANULOCYTE % 0.2 % (0-3.0); LYMPH # 2.6 10^3/uL (1.5-4.5); LYMPH % 30.1 % (24.0-44.0); MEAN CORPUSCULAR HEMOGLOBIN 26.5 pg (27.0-33.0); MEAN CORPUSCULAR HGB CONC 31.4 g/dl (32.0-36.5); MEAN CORPUSCULAR VOLUME 84.2 fl (80.0-96.0); MONO # 0.6 10^3/uL (0.0-0.8); MONO % 6.7 % (0.0-5.0); NEUTROPHILS # 4.9 10^3/uL (1.8-7.7); NEUTROPHILS % 57.3 % (36.0-66.0); PLATELET COUNT, AUTOMATED 655 10^3/uL (150-450); RED BLOOD COUNT 3.93 10^6/uL (4.00-5.40); RED CELL DISTRIBUTION WIDTH 16.6 % (11.5-14.5); WHITE BLOOD COUNT 8.6 10^3/uL (4.0-10.0)
[2017-11-28 18:15] LABS: PROTHROMBIN TIME 13.3 SECONDS (12.1-14.4)
[2017-11-28 18:54] LABS: ALBUMIN 3.5 GM/DL (3.2-5.2); ALBUMIN/GLOBULIN RATIO 0.83 (1.00-1.93); ALKALINE PHOSPHATASE 98 U/L (45-117); ALT/SGPT 20 U/L (12-78); ANION GAP 11 MEQ/L (8-16); AST/SGOT 17 U/L (7-37); BILIRUBIN,DIRECT < 0.1 MG/DL (0.0-0.2); BILIRUBIN,TOTAL 0.2 MG/DL (0.2-1.0); BLOOD UREA NITROGEN 9 MG/DL (7-18); CALCIUM LEVEL 9.2 MG/DL (8.5-10.1); CARBON DIOXIDE LEVEL 25 MEQ/L (21-32); CHLORIDE LEVEL 105 MEQ/L (98-107); CREATININE FOR GFR 1.26 MG/DL (0.55-1.30); GLOMERULAR FILTRATION RATE 50.1 (>58); GLUCOSE, FASTING 88 MG/DL (70-100); LIPASE 122 U/L (73-393); POTASSIUM SERUM 4.1 MEQ/L (3.5-5.1); SODIUM LEVEL 141 MEQ/L (136-145); TOTAL PROTEIN 7.7 GM/DL (6.4-8.2)
== END 2017-11-28 19:49 | disposition home or self-care (01) ==
LOC: M ED 16:52
DX: R10.84 Generalized abdominal pain (principal); Z87.442 Personal history of urinary calculi; Z79.899 Other long term (current) drug therapy; Z88.1 Allergy status to other antibiotic agents; F17.210 Nicotine dependence, cigarettes, uncomplicated
CPT/HCPCS: J2405

== ENCOUNTER 2018-03-06 05:55 | Inpatient (IN) | payer OTHER ==
--- NOTE | 2018-03-05 15:02 | HPE ---
DATE OF ADMISSION: 03/06/2018 CHIEF COMPLAINT: History of perforated diverticulitis. HISTORY OF PRESENT ILLNESS: The patient is a 42-year-old female who had perforated diverticulitis 4 months ago and had a prolonged hospitalization but eventually was discharged home with a colostomy in place and wound / dressing changes for midline incision. Eventually, she healed up her midline wound and presents now for reversal of her colostomy. PAST MEDICAL HISTORY: Significant for history of anxiety, depression, hypertension, mood disorder, gastroesophageal reflux. PAST SURGICAL HISTORY: History of right colon resection for history of diverticulitis, history of sigmoid colectomy and colostomy with splenic flexure takedown. PHYSICAL EXAMINATION: Reveals a 42-year-old female who looks stated age. HEENT is unremarkable. Neck: Supple without adenopathy. Lungs: Clear to auscultation without crackles, wheezes or rhonchi. Heart is regular without murmur. Abdomen is soft, nondistended, nontender. She has colostomy in place, functioning well. No evidence of masses, lesions are appreciated, although it is hard to tell if she has a parastomal hernia given her obesity and where it is developing a midline incisional hernia. IMPRESSION AND PLAN: Patient has a colostomy and at this point the recommendation is for reversal of this. I do feel that it is reasonable to attempt a laparoscopic reversal of this colostomy. Risks, as well as benefits have been discussed with her at length, those including but not limited to infection, bleeding, damage to surrounding structures, as well as possible need for open operative intervention, as well as possible need for additional ostomy. The patient understands and would like to proceed with operative intervention. She also will undergo a mechanical, as well as antibiotic bowel prep. She will have been given IV fluids, IV antibiotics, and will be placed nothing by mouth and hospitalized as an inpatient postoperatively.
[~2018-03-06] VITALS: Ht 160 cm; Wt 92.9 kg
[~2018-03-06 05:55] MED LIST: FLEET ENEMA PR ONE; K-TA10TA PO; K-TA10TA2 PO; KLON1TAB PO; LISI-538 PO; MAG400TA PO; MAGN400T2 PO; PERC5TAB12 PO; PRIL20TA2 PO; PROZ40CA PO; ZOFR4TAB14 PO; ZYPR10TA PO; ZYPR20TA PO
[2018-03-06] MEDS ORDERED: ERTAPENEM SODIUM 1 GM in NS 50 ML IV ONE (06:00)
[2018-03-06] MEDS ORDERED: LR 1,000 ML IV ONE (06:00)
[2018-03-06] MEDS ORDERED: LIDOCAINE 1% MDV 20ML VIAL SQ PRN (06:00)
[2018-03-06] MEDS ORDERED: ERTAPENEM 1 GM INJ (INVanz) (J1335) As Ordered ONE (06:27)
[2018-03-06] MEDS ORDERED: GLUCAGON FOR INJ 1 MG VIAL (J1610) As Ordered ONE (06:58)
[2018-03-06] MEDS ORDERED: BUPIVACAINE/EPIN 0.25% 30 ML VIAL As Ordered ONE (06:58)
[2018-03-06] MEDS ORDERED: LIDOCAINE 2% INJ 100 MG/5 ML SDV (FOR ANES.) As Ordered ONE (07:17)
[2018-03-06] MEDS ORDERED: MIDAZOLAM INJ 2 MG/2 ML VIAL (J2250) As Ordered ONE ×2 (07:17→10:51)
[2018-03-06] MEDS ORDERED: ROCURONIUM BROMIDE 50 MG/5 ML VIAL As Ordered ONE ×2 (07:17→08:34)
[2018-03-06] MEDS ORDERED: dexameTHASONE 4 MG/ML 1ML VIAL (J1100) As Ordered ONE (07:17)
[2018-03-06] MEDS ORDERED: fentaNYL 250 MCG/5 ML INJECTION (J3010) As Ordered ONE (07:17)
[2018-03-06] MEDS ORDERED: PROPOFOL 200 MG/20 ML VIAL As Ordered ONE ×2 (07:17→10:58)
[2018-03-06] MEDS ORDERED: METOCLOPRAMIDE INJ 10MG/2ML VIAL (J2765) As Ordered ONE (07:36)
[2018-03-06] MEDS ORDERED: HYDROmorphone HCL 2 MG/ML 1ML VIAL (J1170) As Ordered ONE (08:08)
[2018-03-06] MEDS ORDERED: BUPIVACAINE LIPOSOME/PF 1.3% 20ML VIAL (13.3MG/ML)(EXPAREL)(C9290 PER1MG) As Ordered ONE (08:31)
[2018-03-06] MEDS ORDERED: BUPIVACAINE HCL 0.25% 30 ML VIAL As Ordered ONE (08:31)
[2018-03-06] MEDS ORDERED: ONDANSETRON 4MG/2ML VIAL (J2405) As Ordered ONE (08:38)
[2018-03-06] MEDS ORDERED: LABETALOL HCL 100 MG/20 ML VIAL As Ordered ONE (08:47)
[2018-03-06] MEDS ORDERED: fentaNYL 100 MCG/2 ML INJECTION (J3010) As Ordered ONE (09:45)
[2018-03-06] MEDS ORDERED: GLYCOPYRROLATE INJ 0.2 MG/ML 2 ML VIAL As Ordered ONE (09:45)
[2018-03-06] MEDS ORDERED: NEOSTIGMINE 10 MG/10 ML VIAL (J2710) As Ordered ONE (09:45)
[2018-03-06] MEDS ORDERED: NS 1,000 ML IV SCH (10:33)
[2018-03-06] MEDS ORDERED: KETOROLAC 60 MG/2 ML VIAL (J1885) As Ordered ONE (10:38)
[2018-03-06] MEDS ORDERED: MORPHINE 1MG/ML IN 0.9% NACL 100ML IV BAG As Ordered ONE (10:43)
[2018-03-06] MEDS ORDERED: PROMETHAZINE INJ 25 MG/ML VIAL (J2550) IV PRN (10:45)
[2018-03-06] MEDS ORDERED: METOCLOPRAMIDE INJ 10MG/2ML VIAL (J2765) IV PRN (10:45)
[2018-03-06] MEDS ORDERED: NALOXONE INJ 0.4 MG/1 ML VIAL (J2310) IV PRN (10:45)
[2018-03-06] MEDS ORDERED: NALBUPHINE HCL 10 MG/ML AMP (J2300) IV PRN (10:45)
[2018-03-06] MEDS ORDERED: ONDANSETRON 4MG/2ML VIAL (J2405) IV PRN ×2 (10:45→11:15)
[2018-03-06] MEDS ORDERED: IPRATROPIUM 0.5MG/ALBUTEROL 2.5MG INH SOL UD 3ML (DUONEB)(J7620) NEB PRN (10:45)
[2018-03-06] MEDS ORDERED: diphenhydrAMINE INJ 50MG/ML VIAL (J1200) IV PRN (10:45)
[2018-03-06] MEDS ORDERED: EPIDURAL/PCA KEYS XX PRN (10:45)
[2018-03-06] MEDS: MORPHINE 1MG/ML IN 0.9% NACL 100ML IV BAG IV PRN (11:00)
[2018-03-06] MEDS ORDERED: LR 1,000 ML IV SCH (11:15)
[2018-03-06] MEDS ORDERED: NORCO, ANEXSIA 5/325MG TABLET (HYDROcodone/ACETAMINOPHEN) PO PRN (11:15)
[2018-03-06] MEDS ORDERED: fentaNYL 100 MCG/2 ML INJECTION (J3010) IV PRN (11:15)
[2018-03-06 12:00] VITALS: BP 129/79
[2018-03-06 12:30] VITALS: BP 126/66
[2018-03-06 14:30] VITALS: BP 118/64
[2018-03-06 15:30] VITALS: BP 109/65
[2018-03-06] MEDS: KETOROLAC 30 MG/ML VIAL (J1885) IV SCH ×2 (16:26→23:34)
[2018-03-06] MEDS: PANTOPRAZOLE 40MG INJ (PROTONIX) (C9113) IV SCH (16:28)
[2018-03-06] MEDS: D5W/LR 1,000 ML IV SCH ×2 (16:29→21:02)
[2018-03-06] MEDS: IPRATROPIUM 0.5MG/ALBUTEROL 2.5MG INH SOL UD 3ML (DUONEB)(J7620) NEB SCH ×2 (17:02→22:54)
[2018-03-06 17:30] VITALS: BP 129/69
[2018-03-06 20:45] VITALS: BP 114/74
[2018-03-07] VITALS: BP 108/62
[2018-03-07] MEDS: IPRATROPIUM 0.5MG/ALBUTEROL 2.5MG INH SOL UD 3ML (DUONEB)(J7620) NEB SCH ×4 (02:00→20:00)
[2018-03-07 04:30] VITALS: BP 111/67
[2018-03-07] MEDS: D5W/LR 1,000 ML IV SCH ×3 (04:48→21:19)
[2018-03-07] MEDS: KETOROLAC 30 MG/ML VIAL (J1885) IV SCH ×4 (04:49→23:59)
[2018-03-07 07:11] LABS: HEMATOCRIT 29.3 % (36.0-47.0); HEMOGLOBIN 9.5 g/dl (12.0-15.5); MEAN CORPUSCULAR HEMOGLOBIN 26.9 pg (27.0-33.0); MEAN CORPUSCULAR HGB CONC 32.4 g/dl (32.0-36.5); PLATELET COUNT, AUTOMATED 323 10^3/uL (150-450); RED BLOOD COUNT 3.53 10^6/uL (4.00-5.40); WHITE BLOOD COUNT 12.6 10^3/uL (4.0-10.0)
[2018-03-07 07:35] LABS: CALCIUM LEVEL 7.8 MG/DL (8.5-10.1); CREATININE FOR GFR 1.09 MG/DL (0.55-1.30); GLOMERULAR FILTRATION RATE 58.9 (>58)
[2018-03-07 08:00] VITALS: BP 106/67
[2018-03-07] MEDS ORDERED: ERTAPENEM SODIUM 1 GM in NS MINI-BAG PLUS 50 ML IV ONE (08:00)
[2018-03-07] MEDS: PANTOPRAZOLE 40MG INJ (PROTONIX) (C9113) IV SCH (09:25)
[2018-03-07] MEDS: ALVIMOPAN 12 MG CAPSULE (ENTEREG) PO SCH ×2 (11:25→21:19)
[2018-03-07 12:00] VITALS: BP 107/65
[2018-03-07] MEDS: MORPHINE 1MG/ML IN 0.9% NACL 100ML IV BAG IV PRN (12:13)
[2018-03-07 16:00] VITALS: BP 129/78
[2018-03-07 20:00] VITALS: BP 119/65
[2018-03-08] VITALS: BP 118/67
[2018-03-08] MEDS: IPRATROPIUM 0.5MG/ALBUTEROL 2.5MG INH SOL UD 3ML (DUONEB)(J7620) NEB SCH ×4 (01:46→19:50)
[2018-03-08 04:00] VITALS: BP 122/69
[2018-03-08] MEDS: KETOROLAC 30 MG/ML VIAL (J1885) IV SCH ×4 (05:29→23:27)
[2018-03-08 06:59] LABS: HEMATOCRIT 28.1 % (36.0-47.0); MEAN CORPUSCULAR HEMOGLOBIN 27.2 pg (27.0-33.0); MEAN CORPUSCULAR VOLUME 84.9 fl (80.0-96.0); PLATELET COUNT, AUTOMATED 271 10^3/uL (150-450); RED BLOOD COUNT 3.31 10^6/uL (4.00-5.40)
[2018-03-08] MEDS: D5W/LR 1,000 ML IV SCH (07:09)
[2018-03-08 07:29] LABS: BLOOD UREA NITROGEN 8 MG/DL (7-18); CALCIUM LEVEL 7.5 MG/DL (8.5-10.1); CARBON DIOXIDE LEVEL 28 MEQ/L (21-32); CHLORIDE LEVEL 105 MEQ/L (98-107); CREATININE FOR GFR 0.92 MG/DL (0.55-1.30); GLOMERULAR FILTRATION RATE > 60.0 (>58); GLUCOSE, FASTING 92 MG/DL (70-100); POTASSIUM SERUM 2.9 MEQ/L (3.5-5.1); SODIUM LEVEL 141 MEQ/L (136-145)
[2018-03-08 08:00] VITALS: BP 128/73
[2018-03-08] MEDS ORDERED: POTASSIUM CHLORIDE 10 MEQ SR TABLET PO ONE (08:00)
[2018-03-08] MEDS: PANTOPRAZOLE 40MG INJ (PROTONIX) (C9113) IV SCH (09:15)
[2018-03-08] MEDS: KCL 40MEQ in NS 1000ML 1,000 ML IV SCH ×2 (09:16→21:46)
[2018-03-08] MEDS: ALVIMOPAN 12 MG CAPSULE (ENTEREG) PO SCH ×2 (09:16→20:45)
--- NOTE | 2018-03-08 10:51 | IPN ---
DATE: 03/08/2018 The patient had some pain at the wound VAC site overnight. Her white count has dropped down to normal today and otherwise has been relatively stable. Her potassium is a little bit down this morning. She has been afebrile. Vital signs have been stable and thus, at this point, given the decreased potassium will replace that and given the discomfort with the wound VAC will change that out to wet to dries. On her physical exam lungs are diminished at bases bilaterally. Heart is regular. Abdomen is soft, nondistended, nontender except bruce-incisionally/at the ostomy site it seems to be worst spot, as expected. IMPRESSION AND PLAN: The patient seems to be stable at this point will see how she does over the ensuing few days, but I anticipate we will have to keep her n.p.o. at least another 24 hours. I would like to get the Butler out of her and see how she does with this, but it may be very difficult to mobilize her adequately to take this out without her having some difficulties with mobilizing. Next, will see how she does over the ensuing 24 hours and maybe start her on some clears tomorrow. Mario-Wagoner drain still is putting out some serosanguineous and at this point will keep that in place and possibly remove that tomorrow depending on how her ostomy drainage continues/decreases over the next 24 hours. From the standpoint of pain control MAIL INSERTER seems to be working adequately at this point and will continue with this for now.
--- NOTE | 2018-03-08 11:24 | IPN ---
DATE: 03/07/2018 The patient has had some relatively good pain control overnight with her pain medications. Her white count has bumped a little bit for which I am not surprised after this colostomy reversal. She has not had any fevers or chills per se, however, and her pain has been relatively well-controlled. We have had the drain in place and she seems to be doing well with that. Once again, afebrile at this point. On her vitals, she has had some great urine output and her Mario-Wagoner drain has been putting out some serosanguineous, but no significant other additional amount of fluid. Her dressings are clean and dry, except her ostomy site seems to be a little bit of pinkish drainage and I do feel that needs to be changed out. Given that we need to change it out, I would like to start her on a wound Vac to see if we can get this decreased in size substantially before she is discharged home. Will plan on changing her out with a wound Vac here today. Otherwise, abdominal exam appears quite benign. Respiratory quiroz, she is not short of breath and she does not appear to be splinting. IMPRESSION AND PLAN: The patient seems to be relatively stable/as expected postop day #1 and at this point my recommendation is that she increase her activity, get her out of bed, will start a wound Vac on her, and will see how she does over the ensuing few days. I do anticipate that overall she is a patient that is very slow to progress with activity and is relatively difficult to mobilize. I anticipate we will have some difficulties with eventually getting her up and moving around, but at this point we seem to be on track for a typical postoperative recovery. Will keep her nothing by mouth (n.p.o.) however, keep the Mario-Wagoner drain in, keep the Butler in, and probably get that out tomorrow morning.
[2018-03-08 12:00] VITALS: BP 130/70
[2018-03-08 16:00] VITALS: BP 154/60
[2018-03-08 20:00] VITALS: BP 140/88
[2018-03-09] VITALS: BP 137/79
[2018-03-09] MEDS: IPRATROPIUM 0.5MG/ALBUTEROL 2.5MG INH SOL UD 3ML (DUONEB)(J7620) NEB SCH ×4 (02:00→21:10)
[2018-03-09 04:00] VITALS: BP 134/84
[2018-03-09] MEDS: KETOROLAC 30 MG/ML VIAL (J1885) IV SCH ×4 (04:38→23:43)
[2018-03-09 07:11] LABS: HEMATOCRIT 30.7 % (36.0-47.0); HEMOGLOBIN 9.8 g/dl (12.0-15.5); MEAN CORPUSCULAR HEMOGLOBIN 27.1 pg (27.0-33.0); MEAN CORPUSCULAR HGB CONC 31.9 g/dl (32.0-36.5); PLATELET COUNT, AUTOMATED 323 10^3/uL (150-450); RED BLOOD COUNT 3.61 10^6/uL (4.00-5.40); WHITE BLOOD COUNT 7.4 10^3/uL (4.0-10.0)
[2018-03-09 07:40] LABS: BLOOD UREA NITROGEN 5 MG/DL (7-18); CALCIUM LEVEL 7.8 MG/DL (8.5-10.1); CARBON DIOXIDE LEVEL 30 MEQ/L (21-32); CHLORIDE LEVEL 103 MEQ/L (98-107); CREATININE FOR GFR 0.76 MG/DL (0.55-1.30); GLOMERULAR FILTRATION RATE > 60.0 (>58); GLUCOSE, FASTING 78 MG/DL (70-100); POTASSIUM SERUM 3.8 MEQ/L (3.5-5.1); SODIUM LEVEL 138 MEQ/L (136-145)
[2018-03-09 08:00] VITALS: BP 139/81
[2018-03-09] MEDS: ALVIMOPAN 12 MG CAPSULE (ENTEREG) PO SCH ×2 (09:04→20:42)
[2018-03-09] MEDS: PANTOPRAZOLE 40MG INJ (PROTONIX) (C9113) IV SCH (09:04)
[2018-03-09] MEDS ORDERED: PERCOCET 5MG/325MG TAB PO PRN (10:30)
[2018-03-09 11:50] VITALS: BP 138/91
[2018-03-09] MEDS: PERCOCET 5MG/325MG TAB PO PRN ×2 (13:58→19:31)
--- NOTE | 2018-03-09 16:16 | IPN ---
DATE: 03/09/2018 The patient is status post laparoscopic colostomy reversal. She seems to be making some good progress at this time. She states her pain is not as severe as it was previously and has been using the patient controlled analgesia (HERB DOCTOR) but would like to convert over to pain pills. Her white count is normal and her Mario-Wagoner drain is not draining all that much at this point and it seems to be some serosanguineous drainage. She has been afebrile. Her dressings are clean and dry on her abdominal examination and otherwise, she has a catheter in place, Mario-Wagoner (NOHELIA) in place, etcetera. IMPRESSION AND PLAN: The patient seems to be making some good progress and my recommendation at this time is I will discontinue her Mario-Wagoner drain, discontinue her Butler, discontinue her patient controlled analgesia (HERB DOCTOR) and IV fluids, start her on some oral pain medications, and continue with her dressing changes. We will start her on some clear liquids today but then we will progress her to a regular diet for tomorrow. She has had some flatus and appears to have some starting of bowel function at this point.
[2018-03-09 16:25] VITALS: BP 137/88
[2018-03-09 20:00] VITALS: BP 139/84
[2018-03-09] MEDS: ONDANSETRON 4MG/2ML VIAL (J2405) IV PRN (21:59)
[2018-03-10] VITALS: BP 132/76
[2018-03-10] MEDS: PERCOCET 5MG/325MG TAB PO PRN ×6 (00:31→22:26)
[2018-03-10] MEDS: IPRATROPIUM 0.5MG/ALBUTEROL 2.5MG INH SOL UD 3ML (DUONEB)(J7620) NEB SCH ×4 (02:00→20:20)
[2018-03-10 04:00] VITALS: BP 134/83
[2018-03-10] MEDS: ONDANSETRON 4MG/2ML VIAL (J2405) IV PRN ×2 (05:28→13:43)
[2018-03-10] MEDS: KETOROLAC 30 MG/ML VIAL (J1885) IV SCH (05:28)
[2018-03-10 06:44] LABS: HEMATOCRIT 31.4 % (36.0-47.0); HEMOGLOBIN 10.2 g/dl (12.0-15.5); MEAN CORPUSCULAR HEMOGLOBIN 27.4 pg (27.0-33.0); MEAN CORPUSCULAR HGB CONC 32.5 g/dl (32.0-36.5); MEAN CORPUSCULAR VOLUME 84.4 fl (80.0-96.0); PLATELET COUNT, AUTOMATED 338 10^3/uL (150-450); RED BLOOD COUNT 3.72 10^6/uL (4.00-5.40)
[2018-03-10 07:05] LABS: BLOOD UREA NITROGEN 6 MG/DL (7-18); CALCIUM LEVEL 8.6 MG/DL (8.5-10.1); CARBON DIOXIDE LEVEL 30 MEQ/L (21-32); CHLORIDE LEVEL 100 MEQ/L (98-107); CREATININE FOR GFR 0.95 MG/DL (0.55-1.30); GLOMERULAR FILTRATION RATE > 60.0 (>58); GLUCOSE, FASTING 92 MG/DL (70-100); POTASSIUM SERUM 3.2 MEQ/L (3.5-5.1); SODIUM LEVEL 137 MEQ/L (136-145)
[2018-03-10 08:00] VITALS: BP 159/92
[2018-03-10] MEDS: ALVIMOPAN 12 MG CAPSULE (ENTEREG) PO SCH (08:25)
[2018-03-10] MEDS: PANTOPRAZOLE 40MG INJ (PROTONIX) (C9113) IV SCH (08:25)
[2018-03-10] MEDS: diphenhydrAMINE 25 MG CAP PO PRN ×2 (09:17→18:17)
--- NOTE | 2018-03-10 10:21 | IPNPDOC ---
Subjective General Date/Time Seen The patient was seen on 03/10/18 at 10:12. Subject Chief Complaint/History The patient is a 42-year-old female admitted with a reason for visit of Diverticulitis. Current Medications Current Medications Current Medications Acetaminophen/ Hydrocodone Bitart ([place], Anexsia 5/325) 1 tab ASDIRECTED PRN PO MILD/MODERATE PAIN (PS 1-7); Start 03/06/18 at 11:15; Stop 03/06/18 at 12:15; Status DC Albuterol/ Ipratropium (Duoneb (Ipr 0.5mg/Alb 2.5mg)) 3 ml Q2HP PRN NEB SOB/WHEEZING; Start 03/06/18 at 10:45 Albuterol/ Ipratropium (Duoneb (Ipr 0.5mg/Alb 2.5mg)) 3 ml RQ6H NEB Last administered on 03/09/18at 21:10; Start 03/06/18 at 14:00 Alvimopan (Entereg) 12 mg BID PO Last administered on 03/10/18at 08:25; Start 03/07/18 at 09:00; Stop 03/14/18 at 08:59 Dextrose/Lactated Ringer's 1,000 ml @ 100 mls/hr Q10H IV Last administered on 03/08/18at 07:09; Start 03/06/18 at 10:33; Stop 03/08/18 at 07:40; Status DC Diphenhydramine HCl (Benadryl) 12.5 mg Q4HP PRN IV ITCHING; Start 03/06/18 at 10:45; Stop 03/09/18 at 10:29; Status DC Diphenhydramine HCl (Benadryl) 25 mg Q8HP PRN PO ITCHING Last administered on 03/10/18at 09:17; Start 03/10/18 at 09:00 Fentanyl Citrate (Sublimaze) 25 mcg Q5MP PRN IV MODERATE PAIN (PS 4-7); Start 03/06/18 at 11:15; Stop 03/06/18 at 12:15; Status DC Ketorolac Tromethamine (ToRADol) 30 mg Q6H IV Last administered on 03/10/18at 05:28; Start 03/06/18 at 17:00; Stop 03/11/18 at 16:59 Lactated Ringer's 1,000 ml @ 100 mls/hr Q10H IV ; Start 03/06/18 at 11:15; Stop 03/06/18 at 12:15; Status DC Lidocaine HCl (LIDOCAINE 1% MDV 20ml) 0.1 ml ONCE PRN SQ DISCOMFORT BEFORE IV START; Start 03/06/18 at 06:00; Stop 03/09/18 at 10:50; Status DC Metoclopramide HCl (REGLAN INJection) 10 mg Q6HP PRN IV NAUSEA OR VOMITING Last administered on 03/06/18at 22:10; Start 03/06/18 at 10:45 Morphine Sulfate (Morphine Sulfate In 0.9%Nacl Iv Bag) Concentration 1 mg/ml ASDIRECTED PRN IV SEE LABEL COMMENTS Last administered on 03/07/18at 12:13; Start 03/06/18 at 10:45; Stop 03/09/18 at 10:26; Status DC Nalbuphine HCl (Nubain) 2.5 mg Q6HP PRN IV PRURITIS; Start 03/06/18 at 10:45; Stop 03/09/18 at 10:26; Status DC Naloxone HCl (Narcan) 0.1 mg Q5MP PRN IV SEE LABEL COMMENTS; Start 03/06/18 at 10:45; Stop 03/09/18 at 10:26; Status DC Non-Formulary Medication (Epidural/PET CARE ATTENDANT [place]) USE THIS ENTRY TO VEND ... Q1M PRN XX SEE LABEL COMMENTS; Start 03/06/18 at 10:45; Stop 03/09/18 at 10:26; Status DC Ondansetron HCl (ZOFRAN INJection) 4 mg Q4HP PRN IV NAUSEA OR VOMITING; Start 03/06/18 at 11:15; Stop 03/06/18 at 12:15; Status DC Ondansetron HCl (ZOFRAN INJection) 4 mg Q6HP PRN IV NAUSEA Last administered on 03/06/18at 16:28; Start 03/06/18 at 10:45; Stop 03/09/18 at 10:30; Status DC Ondansetron HCl (ZOFRAN INJection) 4 mg Q6HP PRN IV NAUSEA OR VOMITING Last administered on 03/10/18at 05:28; Start 03/06/18 at 10:45; Status Future hold Oxycodone/ Acetaminophen (Percocet 5mg/ 325mg Tablet) 1 tab Q4HP PRN PO MILD/MODERATE PAIN (PS 1-7); Start 03/09/18 at 10:30 Oxycodone/ Acetaminophen (Percocet 5mg/ 325mg Tablet) 2 tab Q4HP PRN PO SEVERE PAIN (PS 8-10) Last administered on 03/10/18at 09:18; Start 03/09/18 at 10:30 Pantoprazole Sodium (Protonix) 40 mg DAILY IV Last administered on 03/10/18at 08:25; Start 03/06/18 at 09:00 Potassium Chloride/Sodium Chloride 1,000 ml @ 75 mls/hr [id number] IV Last administered on 03/08/18at 21:46; Start 03/08/18 at 09:00; Stop 03/09/18 at 10:26; Status DC Promethazine HCl (PHENERGAN INJection) 12.5 mg Q6HP PRN IV NAUSEA; Start 03/06/18 at 10:45 Sodium Chloride 1,000 ml @ 15 mls/hr Q24H IV ; Start 03/06/18 at 10:33; Stop 03/06/18 at 11:03; Status DC Allergies Coded Allergies: Ciprofloxacin (Verified Allergy, Unknown, 03/06/18) anyphylaxis Objective Physical Examination Examination GENERAL APPEARANCE:[Patient seen, laying in bed, awake, alert, and oriented. Comfortable, in no acute distress]. SKIN: [Warm and moist]. HEENT: [Normocephalic, atraumatic. [place] palpebral conjunctiva, anicteric sclerae. Lips and mucosa appear moist]. NECK: [Supple, no thyromegaly. No obvious jugular venous distention]. LUNGS: [Clear to auscultation bilaterally. No wheezing appreciated]. HEART: [No chest wall abnormalities. Regular rate and rhythm with no murmurs appreciated]. ABDOMEN: Abdomen is , soft, . [No hepatosplenomegaly. No umbilical or groin herniations, nondistended. No noticeable rebound or guarding. No grimacing with palpation. No rebound tenderness. No masses appreciated]. EXTREMITIES: [Extremities have no deformities. No edema identified]. Vital Signs Vital Signs Date Time Temp Pulse Resp B/P (MAP) Pulse Ox O2 Delivery O2 Flow Rate FiO2 03/10/18 09:18 17 Room Air 03/10/18 04:00 97.5 58 134/83 (100) 97 03/09/18 19:31 97 03/09/18 08:00 2.0 I&Os I&O- Last 24 Hours up to 6 AM 03/10/18 05:59 Intake Total 2235 ml Output Total 2478 ml Balance -243 ml Laboratory Data Labs 24H Laboratory Tests 2 03/10/18 06:23: Nucleated Red Blood Cells % (auto) 0.0, Anion Gap 7L, Glomerular Filtration Rate > 60.0, Blood Urea Nitrogen 6L, Creatinine 0.95, Sodium Level 137, Potassium Level 3.2L, Chloride Level 100, Carbon Dioxide Level 30, Calcium Level 8.6 CBC/BMP Laboratory Tests 03/10/18 06:23 Red Blood Count 3.72 L, Mean Corpuscular Volume 84.4, Mean Corpuscular Hemoglobin 27.4, Mean Corpuscular Hemoglobin Concent 32.5, Red Cell Distribution Width 14.2, Calcium Level 8.6 Impression s/p laparoscopic colostomy reversal History of perforated acute diverticulitis Patient has been started on regular diet today. Continue present pain medications. Patient advised to ambulate to the hallways and take deep breathing exercises. We will follow her course over the weekend to see how she does. Patient is highly anxious. May shower prior to dressing changes. Plan / VTE VTE Prophylaxis Ordered?: Yes WENDY JARAMILLO MD Mar 10, 2018 10:21
[2018-03-10] MEDS: POTASSIUM CHLORIDE 10 MEQ SR TABLET PO SCH (10:55)
[2018-03-10] MEDS: ENOXAPARIN 40 MG/0.4 ML SYRINGE (J1650) SC SCH (10:55)
[2018-03-10 16:00] VITALS: BP 138/92
[2018-03-10 20:00] VITALS: BP 160/87
[2018-03-11] VITALS: BP 150/85
[2018-03-11] MEDS: IPRATROPIUM 0.5MG/ALBUTEROL 2.5MG INH SOL UD 3ML (DUONEB)(J7620) NEB SCH ×4 (01:54→20:20)
[2018-03-11] MEDS: diphenhydrAMINE 25 MG CAP PO PRN ×2 (02:32→13:47)
[2018-03-11] MEDS: PERCOCET 5MG/325MG TAB PO PRN ×5 (02:32→20:12)
[2018-03-11 04:00] VITALS: BP 123/81
[2018-03-11 06:53] LABS: HEMATOCRIT 34.9 % (36.0-47.0); MEAN CORPUSCULAR HGB CONC 31.5 g/dl (32.0-36.5); MEAN CORPUSCULAR VOLUME 85.7 fl (80.0-96.0); PLATELET COUNT, AUTOMATED 387 10^3/uL (150-450); RED BLOOD COUNT 4.07 10^6/uL (4.00-5.40); WHITE BLOOD COUNT 6.5 10^3/uL (4.0-10.0)
[2018-03-11 07:23] LABS: CALCIUM LEVEL 7.8 MG/DL (8.5-10.1); CREATININE FOR GFR 1.2 MG/DL (0.55-1.30); GLOMERULAR FILTRATION RATE 52.7 (>58); POTASSIUM SERUM 3.8 MEQ/L (3.5-5.1)
[2018-03-11 08:00] VITALS: BP 154/90
[2018-03-11] MEDS: ENOXAPARIN 40 MG/0.4 ML SYRINGE (J1650) SC SCH (09:07)
[2018-03-11] MEDS: POTASSIUM CHLORIDE 10 MEQ SR TABLET PO SCH (09:08)
--- NOTE | 2018-03-11 10:36 | IPNPDOC ---
Subjective General Date/Time Seen The patient was seen on 03/11/18 at 10:30. Subject Chief Complaint/History The patient is a 42-year-old female admitted with a reason for visit of Diverticulitis. She is tolerating regular food. She is having loose stools. She reports passing flatus. She reports some occasional gas-type crampy left upper quadrant discomfort. She denies any nausea. Current Medications Current Medications Current Medications Acetaminophen/ Hydrocodone Bitart ([place], Anexsia 5/325) 1 tab ASDIRECTED PRN PO MILD/MODERATE PAIN (PS 1-7); Start 03/06/18 at 11:15; Stop 03/06/18 at 12:15; Status DC Albuterol/ Ipratropium (Duoneb (Ipr 0.5mg/Alb 2.5mg)) 3 ml Q2HP PRN NEB SOB/WHEEZING; Start 03/06/18 at 10:45 Albuterol/ Ipratropium (Duoneb (Ipr 0.5mg/Alb 2.5mg)) 3 ml RQ6H NEB Last administered on 03/11/18at 08:29; Start 03/06/18 at 14:00 Alvimopan (Entereg) 12 mg BID PO Last administered on 03/10/18at 08:25; Start 03/07/18 at 09:00; Stop 03/10/18 at 10:21; Status DC Dextrose/Lactated Ringer's 1,000 ml @ 100 mls/hr Q10H IV Last administered on 03/08/18at 07:09; Start 03/06/18 at 10:33; Stop 03/08/18 at 07:40; Status DC Diphenhydramine HCl (Benadryl) 12.5 mg Q4HP PRN IV ITCHING; Start 03/06/18 at 10:45; Stop 03/09/18 at 10:29; Status DC Diphenhydramine HCl (Benadryl) 25 mg Q8HP PRN PO ITCHING Last administered on 03/11/18at 02:32; Start 03/10/18 at 09:00 Enoxaparin Sodium (Lovenox) 40 mg DAILY SC Last administered on 03/11/18at 09 :07; Start 03/10/18 at 09:00 Fentanyl Citrate (Sublimaze) 25 mcg Q5MP PRN IV MODERATE PAIN (PS 4-7); Start 03/06/18 at 11:15; Stop 03/06/18 at 12:15; Status DC Ketorolac Tromethamine (ToRADol) 30 mg Q6H IV Last administered on 03/10/18at 05:28; Start 03/06/18 at 17:00; Stop 03/10/18 at 10:21; Status DC Lactated Ringer's 1,000 ml @ 100 mls/hr Q10H IV ; Start 03/06/18 at 11:15; Stop 03/06/18 at 12:15; Status DC Lidocaine HCl (LIDOCAINE 1% MDV 20ml) 0.1 ml ONCE PRN SQ DISCOMFORT BEFORE IV START; Start 03/06/18 at 06:00; Stop 03/09/18 at 10:50; Status DC Metoclopramide HCl (REGLAN INJection) 10 mg Q6HP PRN IV NAUSEA OR VOMITING Last administered on 03/06/18at 22:10; Start 03/06/18 at 10:45 Morphine Sulfate (Morphine Sulfate In 0.9%Nacl Iv Bag) Concentration 1 mg/ml ASDIRECTED PRN IV SEE LABEL COMMENTS Last administered on 03/07/18at 12:13; Start 03/06/18 at 10:45; Stop 03/09/18 at 10:26; Status DC Nalbuphine HCl (Nubain) 2.5 mg Q6HP PRN IV PRURITIS; Start 03/06/18 at 10:45; Stop 03/09/18 at 10:26; Status DC Naloxone HCl (Narcan) 0.1 mg Q5MP PRN IV SEE LABEL COMMENTS; Start 03/06/18 at 10:45; Stop 03/09/18 at 10:26; Status DC Non-Formulary Medication (Epidural/ADVANCED ANALYTICS ASSOCIATE [place]) USE THIS ENTRY TO VEND ... Q1M PRN XX SEE LABEL COMMENTS; Start 03/06/18 at 10:45; Stop 03/09/18 at 10:26; Status DC Ondansetron HCl (ZOFRAN INJection) 4 mg Q4HP PRN IV NAUSEA OR VOMITING; Start 03/06/18 at 11:15; Stop 03/06/18 at 12:15; Status DC Ondansetron HCl (ZOFRAN INJection) 4 mg Q6HP PRN IV NAUSEA Last administered on 03/06/18at 16:28; Start 03/06/18 at 10:45; Stop 03/09/18 at 10:30; Status DC Ondansetron HCl (ZOFRAN INJection) 4 mg Q6HP PRN IV NAUSEA OR VOMITING Last administered on 03/10/18at 13:43; Start 03/06/18 at 10:45; Status Future hold Oxycodone/ Acetaminophen (Percocet 5mg/ 325mg Tablet) 1 tab Q4HP PRN PO MILD/MODERATE PAIN (PS 1-7); Start 03/09/18 at 10:30 Oxycodone/ Acetaminophen (Percocet 5mg/ 325mg Tablet) 2 tab Q4HP PRN PO SEVERE PAIN (PS 8-10) Last administered on 03/11/18at 06:51; Start 03/09/18 at 10:30 Pantoprazole Sodium (Protonix) 40 mg DAILY IV Last administered on 03/10/18at 08:25; Start 03/06/18 at 09:00; Stop 03/10/18 at 10:21; Status DC Potassium Chloride/Sodium Chloride 1,000 ml @ 75 mls/hr [id number] IV Last administered on 03/08/18at 21:46; Start 03/08/18 at 09:00; Stop 03/09/18 at 10:26; Status DC Potassium Chloride (Micro-K Extencaps) 40 meq DAILY PO Last administered on 03/11/18at 09:08; Start 03/10/18 at 09:00; Stop 03/11/18 at 10:04; Status DC Promethazine HCl (PHENERGAN INJection) 12.5 mg Q6HP PRN IV NAUSEA; Start 03/06/18 at 10:45 Sodium Chloride 1,000 ml @ 15 mls/hr Q24H IV ; Start 03/06/18 at 10:33; Stop 03/06/18 at 11:03; Status DC Allergies Coded Allergies: Ciprofloxacin (Verified Allergy, Unknown, 03/06/18) anyphylaxis Objective Physical Examination Examination GENERAL APPEARANCE: Comfortable. SKIN: Warm and moist. HEENT: Normocephalic, atraumatic. [place] palpebral conjunctiva, anicteric sclerae. Lips and mucosa appear moist. NECK: Supple, no thyromegaly. No obvious jugular venous distention. LUNGS: Clear to auscultation bilaterally. No wheezing appreciated. HEART: No chest wall abnormalities. Regular rate and rhythm with no murmurs appreciated. ABDOMEN: Abdomen is obese, soft, nondistended. Left lower quadrant ostomy wound is clean and dry with wet-to-dry gauze packing. No associated skin erythema or drainage. Nontender on palpation. EXTREMITIES: Extremities have no deformities. No edema identified. Vital Signs Vital Signs Date Time Temp Pulse Resp B/P (MAP) Pulse Ox O2 Delivery O2 Flow Rate FiO2 03/11/18 08:00 97.9 65 19 154/90 (111) 98 Room Air 03/09/18 19:31 97 03/09/18 08:00 2.0 I&Os I&O- Last 24 Hours up to 6 AM 03/11/18 06:00 Intake Total 1080 ml Output Total 1450 ml Balance -370 ml Laboratory Data Labs 24H CBC/BMP Laboratory Tests 03/11/18 06:02 Red Blood Count 4.07, Mean Corpuscular Volume 85.7, Mean Corpuscular Hemoglobin 27.0, Mean Corpuscular Hemoglobin Concent 31.5 L, Red Cell Distribution Width 14.4, Calcium Level 7.8 L Impression Postop day for laparoscopic reversal of colostomy She seems to be doing well. Continue present management. Patient advised to ambulate to hallways. Anticipate she will be able to go home tomorrow after arranging for visiting nurse to help her with her colostomy wound care. Plan / VTE VTE Prophylaxis Ordered?: Yes WENDY JARAMILLO MD Mar 11, 2018 10:36
[2018-03-11 12:00] VITALS: BP 161/90
[2018-03-11] MEDS: ONDANSETRON 4MG/2ML VIAL (J2405) IV PRN (13:45)
[2018-03-11 16:00] VITALS: BP 140/83
[2018-03-11 20:00] VITALS: BP 138/85
[2018-03-12] VITALS: BP 124/80
[2018-03-12] MEDS: PERCOCET 5MG/325MG TAB PO PRN ×3 (00:18→11:07)
[2018-03-12] MEDS: IPRATROPIUM 0.5MG/ALBUTEROL 2.5MG INH SOL UD 3ML (DUONEB)(J7620) NEB SCH ×2 (01:33→07:27)
[2018-03-12 04:00] VITALS: BP 137/80
[2018-03-12 07:18] LABS: HEMATOCRIT 31.9 % (36.0-47.0); HEMOGLOBIN 10.1 g/dl (12.0-15.5); MEAN CORPUSCULAR HEMOGLOBIN 26.9 pg (27.0-33.0); MEAN CORPUSCULAR HGB CONC 31.7 g/dl (32.0-36.5); MEAN CORPUSCULAR VOLUME 84.8 fl (80.0-96.0); PLATELET COUNT, AUTOMATED 378 10^3/uL (150-450); RED BLOOD COUNT 3.76 10^6/uL (4.00-5.40); WHITE BLOOD COUNT 6.2 10^3/uL (4.0-10.0)
[2018-03-12 07:32] LABS: BLOOD UREA NITROGEN 5 MG/DL (7-18); CARBON DIOXIDE LEVEL 31 MEQ/L (21-32); CHLORIDE LEVEL 105 MEQ/L (98-107); CREATININE FOR GFR 1.02 MG/DL (0.55-1.30); GLOMERULAR FILTRATION RATE > 60.0 (>58); GLUCOSE, FASTING 89 MG/DL (70-100); POTASSIUM SERUM 3.8 MEQ/L (3.5-5.1); SODIUM LEVEL 141 MEQ/L (136-145)
[2018-03-12] MEDS: ONDANSETRON 4MG/2ML VIAL (J2405) IV PRN (08:18)
[2018-03-12 08:30] VITALS: BP 133/85
[2018-03-12] MEDS: diphenhydrAMINE 25 MG CAP PO PRN (09:00)
[2018-03-12] MEDS: ENOXAPARIN 40 MG/0.4 ML SYRINGE (J1650) SC SCH (09:01)
[2018-03-12] MEDS ORDERED: PERCOCET PO (12:05)
[2018-03-12] MEDS ORDERED: ZOFR4TAB14 PO (12:05)
--- NOTE | 2018-03-26 15:05 | DSES ---
DATE OF ADMISSION: 03/06/2018 DATE OF DISCHARGE: 03/12/2018 PRINCIPAL DIAGNOSIS: Colostomy status post perforated diverticulitis. PROCEDURES PERFORMED: Laparoscopic colostomy reversal on 03/06/2018. ASSOCIATED DIAGNOSES: 1. History of anxiety. 2. Depression. 3. Hypertension. 3. Mood disorder. 4. Gastroesophageal (GE) reflux. 5. Right colonic resection for diverticulitis in the remote past. 6. Recent sigmoid colectomy and colostomy. BRIEF HOSPITAL COURSE SUMMARY: The patient was admitted with a history of a perforated diverticulitis and a colostomy placement, and since that time had been doing relatively well with the ostomy but now presents for reversal. She was admitted and brought to the operating room where she underwent a laparoscopic colostomy reversal. The patient tolerated this quite well. However, she did have significant pain at the colostomy closure site despite some local anesthetic infusion in this area. She had a wound vacuum-assisted closure (VAC) placed on the first postoperative day. Unfortunately, this was uncomfortable enough that she did not want to continue with this. Thus, we started wet-to-dry dressing on her the following few days and she had improvement of her discomfort and pain. She essentially stayed with a normal white count, had been afebrile, and was discharged home with a wet-to-dry normal saline dressing change each day. MEDICATIONS AT THE TIME OF DISCHARGE: Include: - Percocet 1-2 tablets every four hours as needed for pain - Zofran 4 mg as needed for nausea She is to followup in one week for staple removal and 2-3 weeks for reevaluation.
--- NOTE | 2018-03-27 07:09 | RO ---
DATE OF PROCEDURE: 03/06/2018 PREOPERATIVE DIAGNOSIS: Colostomy status post perforated diverticulitis. POSTOPERATIVE DIAGNOSIS: Colostomy status post perforated diverticulitis. PROCEDURE: Laparoscopic colostomy reversal with coloproctostomy and laparoscopic splenic flexure takedown. SURGEONS: Dr. Alireza Kimball COMPLEX CASE MANAGER: Dr. Kirkland (provided retraction exposure assistance with the anastomosis and abdominal wall closure. ANESTHESIA: General endotracheal anesthesia. ESTIMATED BLOOD LOSS: Minimal. FLUIDS: Crystalloid. BRIEF PROCEDURE SUMMARY: The patient was brought to the operating room and was given general anesthesia. After adequate anesthesia and preoperative antibiotics were given for the patient the patient was prepped and draped in sterile fashion. Next the colostomy was closed with a heavy Prolene and once this was closed the site and then an elliptical incision around the colostomy was made with skin knife. Electrocautery was used cut through dermis, underlying subcutaneous tissue and the colostomy was followed all the way around circumferentially down to the fascia where it was attached to the fascia it was taken down with sharp dissection as well as the electrocautery and eventually after adequate mobilization of this tissue I was able to mobilize and take down multiple adhesions in this area just from the left upper quadrant incision all the way over to the midline and inferior into the left lower quadrant and just above on the right-hand side as well. Eventually after I was able to mobilize this adequately then I placed a stapler across the end of the colostomy site returned it to the abdomen and then using a blunt trocar at the incision site were used to insufflate from the colostomy site. Next, additional 5 mm trocars were placed first to take down multiple adhesions then a 10 mm trocar was placed at the midline to allow for the camera port to be placed here. After these were placed additional 5 mm trocars were placed on the right-hand side to help dissection in the pelvis. Harmonic scalpel was used to dissect down multiple adhesions, most of these were loosely areolar type of adhesions that I were able to take down and once I was able to take the omentum out of the pelvis and then some a small bowel was adherent in the pelvis as well to the rectal stump once we were able to get this through we were able to mobilize the rectal stump quite nicely as well where there was some adhesions holding it to the lateral pelvic sidewall. This was relatively a long segment of colon/rectum. And after this was adequately mobilized, it was obvious that there was still some amount of colon that I needed to bring down out of the splenic flexure area thus the transverse colon was mobilized off the omentum in this area and starting from the midabdomen and going up to the splenic flexure the avascular plane was entered and once I was able to get into this nice plane dissection was performed with the harmonic scalpel to mobilize the splenic flexure. This was mobilized distally and on the left-hand side the colon had been previously mobilized almost up to the splenic flexure but this was able to be better mobilized at this point. Once I was able to mobilize this well, get some the adhesions of the omentum off the transverse colon and the descending colon the distal portion of this easily reached the rectal stump area. Once this was able to reach I brought this back out through the ostomy site placed an EEA 29 stapler in this area and the enterotomy site was closed with a echelon 60 green load. This was placed back into the abdominal cavity and then the anastomosis was created with an EEA stapler. This was placed under water and insufflated revealing no air leak. Mario-Wagoner drain was left in the bed of dissection. And Exparel was placed around the ostomy site. This was packed with a dry gauze and all other sites were closed with robbie at the skin level. Dry sterile dressing was applied. The patient was awakened, extubated, and brought to recovery room awake, alert, and hemodynamically stable. Sponge and needle counts correct times two.
== END 2018-03-12 14:15 | disposition home or self-care (01) | DRG 221 ==
LOC: M OR 05:55 → M PED 12:00
PROVIDERS: ADMIT Surgery; ATTEND Surgery
PROC: 0WQF4ZZ Repair Abdominal Wall, Percutaneous Endoscopic Approach (ICD-10-PCS; 2018-03-06)
PROC: 0DBN4ZZ Excision of Sigmoid Colon, Percutaneous Endoscopic Approach (ICD-10-PCS; principal; 2018-03-06 07:30)
DX: Z43.3 Encounter for attention to colostomy (principal); I10 Essential (primary) hypertension; K57.80 Diverticulitis of intestine, part unspecified, with perforation and abscess without bleeding; F32.9 Major depressive disorder, single episode, unspecified; K21.9 Gastro-esophageal reflux disease without esophagitis; Z79.899 Other long term (current) drug therapy; Z88.8 Allergy status to other drugs, medicaments and biological substances